=== PATIENT | female | born 1995 | race Caucasian/White ===

== ENCOUNTER 2018-12-26 12:13 | Emergency (ER) | payer MEDICAID ==
[~2018-12-26] VITALS: Ht 165.1 cm; Wt 65.0 kg
[2018-12-26] MEDS ORDERED: ACETAMINOPHEN 325MG TABLET PO ONE (13:15)
[2018-12-26 14:59] VITALS: BP 128/87
== END 2018-12-26 15:02 | disposition home or self-care (01) ==
LOC: ER 12:13
DX: S09.8XXA Other specified injuries of head, initial encounter (principal); M54.2 Cervicalgia; R51 Headache; J45.909 Unspecified asthma, uncomplicated; V43.52XA Car driver injured in collision with other type car in traffic accident, initial encounter; Y93.89 Activity, other specified; Y92.488 Other paved roadways as the place of occurrence of the external cause
CPT/HCPCS: 81025; 99284